=== PATIENT | male | born 1970 | race Caucasian/White ===

== ENCOUNTER 2025-03-16 15:51 | Emergency (ER) | payer OTHER, SELFPAY ==
[2025-03-16 15:56] VITALS: BP 116/75; PULSE 78; RESP 18; TEMP 36.1; O2SAT 99; BMI 36.1
--- NOTE | 2025-03-16 16:25 | EDS_ITS ---
HPI History of Present Illness Chief Complaint: Hypotension Informant: patient Onset/Context/Timing Onset: Today Context: Sudden Onset Timing: Continuous Quality: Lightheaded Location: Generalized Worsened by: Standing, moving Relieved by: Nothing Narrative Narrative: Patient presents with hypotensive episodes that began today. Patient states he was canoeing when he started feeling dizzy and lightheaded. Patient states he felt like his blood pressure dropped. Patient states that he had a sense of impending doom. Patient denies any loss of consciousness. Patient states his symptoms got worse when he was standing and moving. Patient states he was able [place] out [place] the [place] and climbed to the shore. Patient states he laid down on his back and put his feet up against a tree. Patient states none of this helped. Patient had an episode of sweating. Patient also admits to an episode of nausea and vomiting. Patient denies any chest pain. Patient denies any shortness of breath. Patient denies any headaches. PFSH PFSH Medical History (Updated 03/16/25 @ 19:[address] Zhang Zamora DO) Hypertension Medical History no medical history Allergy/AdvReac Type Severity Reaction Status Date / Time acetaminophen (From Allergy Mild Abd Verified 03/16/25 15:56 Darvocet-N) cramps/diarrhea propoxyphene (From Allergy Mild Abd Verified 03/16/25 15:56 Darvocet-N) cramps/diarrhea tramadol Allergy Mild [place] Verified 03/16/25 15:56 Surgical History Hx of appendectomy Social History (Updated 03/16/25 @ 17:[address] Zhang Zamora DO) Electronic Cigarette Use: with nicotine substance use type: does not use ROS ROS ED Constitutional Constitutional ED: Reports sweats; Denies chills or fever(s) Eyes Eyes: Denies blurry vision or change in vision ENT ENT ED: Denies rhinorrhea or sore throat Cardiovascular Cardiovascular: Denies chest pain or palpitations Respiratory/Chest Respiratory/Chest: Denies cough or dyspnea Gastrointestinal Gastrointestinal: Reports nausea and vomiting Genitourinary Genitourinary ED: Denies dysuria or hematuria Musculoskeletal Musculoskeletal: Denies back pain or neck pain Integumentary Denies abscess or rash Neurologic Neurologic: Denies headache(s) or weakness Allergic/Immunologic Allergic/Immunologic ED: Denies mouth swelling or urticaria EXAM Physical Exam Const Vital Signs: 03/16/25 15:56 03/16/25 15:59 03/16/25 17:34 Temperature 97 F L Temperature Source Temporal Pulse Rate 78 Pulse Rate [Lying] 76 Pulse Rate [Sitting (for 1 minute prior to obtaining)] 76 Pulse Rate [Standing (for 1 minute prior to obtaining)] 85 Respiratory Rate 18 Respiratory Effort Normal Respiratory Pattern Normal Blood Pressure 116/75 Blood Pressure [Lying] 105/71 Blood Pressure [Sitting (for 1 minute prior to obtaining)] 109/79 Blood Pressure [Standing (for 1 minute prior to obtaining)] 111/82 H Blood Pressure Mean 88 Blood Pressure Mean [Lying] 82 Blood Pressure Mean [Sitting (for 1 minute prior to obtaining)] 89 Blood Pressure Mean [Standing (for 1 minute prior to obtaining)] 91 Pulse Ox 99 Oxygen Delivery Method Room Air 03/16/25 17:55 03/16/25 19:00 Temperature Temperature Source Pulse Rate 66 74 Pulse Rate [Lying] Pulse Rate [Sitting (for 1 minute prior to obtaining)] Pulse Rate [Standing (for 1 minute prior to obtaining)] Respiratory Rate 18 18 Respiratory Effort Respiratory Pattern Blood Pressure 120/74 111/82 H Blood Pressure [Lying] Blood Pressure [Sitting (for 1 minute prior to obtaining)] Blood Pressure [Standing (for 1 minute prior to obtaining)] Blood Pressure Mean 89 91 Blood Pressure Mean [Lying] Blood Pressure Mean [Sitting (for 1 minute prior to obtaining)] Blood Pressure Mean [Standing (for 1 minute prior to obtaining)] Pulse Ox 96 98 Oxygen Delivery Method Room Air Room Air Positive well nourished and well developed Constitutional Narrative: BMI is 36.1. General Appearance ED: well developed and NAD HEENT Reports moist mucous membranes Neck supple and no JVD Resp normal respiratory effort and clear to auscultation bilaterally Cardio regular rate and regular rhythm GI non-tender and non-distended Palpation: soft Extremity normal to inspection General Extremety ED: Negative for edema or tenderness General Extremity: Negative for edema Neuro oriented x3, CN's II-XII intact bilaterally and no sensory deficits noted Sensorium / Orientation: alert Motor Exam: strength 5/5 throughout Psych mental status grossly normal MDM MDM MDM Narrative Medical decision making narrative: Differential diagnosis includes dehydration, hypovolemia, electrolyte abnormality, cardiac dysrhythmia, cardiac ischemia, pneumonia, bronchitis, hypom agnesemia, pulmonary embolism, and anxiety. EKG will be obtained to assess for cardiac dysrhythmia and cardiac ischemia. Chest x-ray will be obtained to assess for pneumonia or bronchitis. CBC will be obtained to assess for leukocytosis and anemia. Basic metabolic profile will be obtained to assess for electrolyte abnormality and renal function. Serum magnesium will be obtained to assess for hypomagnesemia and hypomagnesemia. High-sensitivity troponin will be obtained to assess for cardiac ischemia. D-dimer will be obtained to assess for pulmonary embolism. Orthostatic vital signs will be obtained to assess for hypovolemia and orthostatic hypotension. History & Record Review Additional record(s) reviewed:: No prior records Lab Data Attestation: I reviewed the patient's lab results. Lab results narrative: CBC was reviewed there is a slight anemia with a hemoglobin of 12.8 and hematocrit 35.7. The remainder is within normal limits. Basic metabolic profile was reviewed. BUN was 21 and creatinine was 1.31. D-dimer was reviewed and was normal at 0.27. Initial high-sensitivity troponin was reviewed and was less than 6. 2-hour repeat high-sensitivity troponin was reviewed and was less than 6. Labs: Laboratory Results - last 24 hr 03/16/25 03/16/25 16:09 18:17 WBC 7.5 RBC 4.18 L Hgb 12.8 L Hct 35.7 L MCV 85.4 MCH 30.6 MCHC 35.9 RDW Std Deviation 38.7 RDW Coeff of [place] 12.5 Plt Count 222 MPV 11.3 Immature Gran % (Auto) 0.300 Neut % (Auto) 80.1 H Lymph % (Auto) 12.6 L [place] % (Auto) 6.8 Eos % (Auto) 0.1 Baso % (Auto) 0.1 Absolute Neuts (auto) 6.0 Absolute Lymphs (auto) 0.95 Nucleated RBC % 0 D-Dimer Quant (PE/DVT) 0.27 Sodium 135 Potassium 3.3 Chloride 100 Carbon Dioxide 19.3 L Anion Gap 16 H BUN 21 H Creatinine 1.31 H Estim Creat Clear Calc 84.50 Est GFR (MDRD) Non-Af 64 BUN/Creatinine Ratio 15.7 Glucose 105 H Calcium 9.3 Troponin T High Sens < 6 Troponin T Hi Sens 2 Hr < 6 Radiography Chest X-Ray - ED: 2 View, Read by ED Physician, Read by Radiologist and No Acute Disease Diagnostic Testing: Clinical Impression(s) from Imaging Studies Chest X-Ray 03/16/25 17:42 IMPRESSION: NO ACUTE FINDINGS. Reading Location: [id number] and lateral chest x-ray was obtained. There are 2 views. On my independent interpretation, lung [place] are clear. There is normal cardiac silhouette. Bony thorax is normal. There is no acute process noted. Radiologist also interpreted the x-ray and agrees. Treatment and Re-Evaluation :: Patient was given IV fluids. Patient felt better on reevaluation. Patient was advised of his findings. Patient was instructed to drink plenty of fluids. Patient was instructed to follow-up with his primary care physician in 5 to 7 days for further evaluation. Patient understood and was agreeable with the plan. All questions were answered. Discharge Plan Triage Chief Complaint: Hypotension ED Provider: Zhang Zamora Dx/Rx/DC Orders Clinical Impression: Lightheadedness, Dehydration Instructions: ED Dehydration (Adult), ED Dizziness, Uncertain Cause Primary Care Provider: CORWIN MCGEE Referrals: CORWIN MCGEE [Other] - 5-7 Days [facility] Doctor,Out of [Non-Staff] - Print Language: Georgian Disposition Disposition: Home, Self Care
[2025-03-16] MEDS: 0.9% Normal Saline (1000mL) 1,000 ML 1000 ML IV (17:26)
[2025-03-16 17:32] LABS: Hematocrit 35.7 % (40-54); Hemoglobin 12.8 g/dL (13.0-16.5); Immature Granulocytes Count 0.020 X10^3/uL (0.0-0.0); Mean Corp Hgb Conc 35.9 g/dL (32-36); Mean Corpuscular Volume 85.4 fL (80-94); Mean Platelet Vol. 11.3 fl (6.2-12.0); NRBC Flagged by Analyzer 0 % (0-5); Platelet Count 222 K/mm3 (150-450); RBC Distribution Width CV 12.5 % (11.6-14.6); RBC Distribution Width SD 38.7 fl (35.1-43.9); Red Blood Count 4.18 M/mm3 (4.6-6.2); White Blood Count 7.5 K/mm3 (4.4-11.0)
[2025-03-16 17:34] VITALS: BP 105/71; BP 109/79; BP 111/82; PULSE 76; PULSE 85
--- NOTE | 2025-03-16 17:42 | RAD_ITS ---
PROCEDURE: CHEST PA AND LATERAL 03/16/2025 REASON FOR EXAM: HYPOTENSION TECHNIQUE: CHEST PA AND LATERAL COMPARISON: None. FINDINGS: Hardware: None. Heart: The heart size is normal. Mediastinum: The mediastinal contour is unremarkable. Lungs: No focal consolidation, pleural effusion or pneumothorax. Bones: Degenerative changes are identified within the thoracic spine. RAD/Chest PA and Lateral IMPRESSION: NO ACUTE FINDINGS. Reading Location: [id number]
[2025-03-16 17:52] LABS: D-Dimer Quantitative (DVT/PE) 0.27 FEU/ug/m (0.27-0.49)
[2025-03-16 17:55] VITALS: BP 120/74; PULSE 66; RESP 18; O2SAT 96
[2025-03-16 18:09] LABS: Anion Gap 16 (5-15); BUN 21 mg/dL (4-19); BUN/Creat Ratio 15.7 RATIO (10-20); Calcium,Total 9.3 mg/dL (7.6-11.0); Carbon Dioxide 19.3 mmol/L (21.0-32.0); Chloride 100 mmol/L (98-108); Estimated Creatinine Clearance 84.50 ml/min (50-250); Glucose 105 mg/dL (70-99); Potassium 3.3 mmol/L (3.3-5.1); Troponin T High Sensitivity < 6 ng/L (<=22)
[2025-03-16 18:49] LABS: Troponin T High Sens 2 HR < 6 ng/L (<=22)
[2025-03-16 19:00] VITALS: BP 111/82; PULSE 74; RESP 18; O2SAT 98
[2025-03-16 19:23] VITALS: BP 109/79; PULSE 71; RESP 18; TEMP 36.8; O2SAT 98
== END 2025-03-16 19:25 | disposition home or self-care (01) ==
PROVIDERS: Emergency Provider Emergency Medicine; Visit Provider Emergency Medicine
DX: R42 Dizziness and giddiness (principal); E86.0 Dehydration; R11.2 Nausea with vomiting, unspecified; F17.290 Nicotine dependence, other tobacco product, uncomplicated; I10 Essential (primary) hypertension; D64.9 Anemia, unspecified
CPT/HCPCS: 71046; 80048; 84484; 85025; 85379; 96360; 96361; 99285; A4216